=== PATIENT | female | born 1985 | race African-American/Black ===

== ENCOUNTER 2018-08-19 08:56 | Emergency (ER) | payer MEDICAID ==
[~2018-08-19] VITALS: Ht 172.7 cm; Wt 124.7 kg
[2018-08-19 09:02] VITALS: Ht 172.7 cm; Wt 124.7 kg
[2018-08-19 09:48] VITALS: BP 133/79
== END 2018-08-19 09:45 | disposition home or self-care (01) ==
LOC: ED 08:56
DX: L25.9 Unspecified contact dermatitis, unspecified cause (principal); E66.01 Morbid (severe) obesity due to excess calories; Z68.41 Body mass index [BMI] 40.0-44.9, adult

== ENCOUNTER 2019-01-16 08:55 | Emergency (ER) | payer MEDICAID ==
[~2019-01-16] VITALS: Ht 170.2 cm; Wt 116.1 kg
[2019-01-16 08:59] VITALS: Ht 170.2 cm; Wt 116.1 kg
[2019-01-16 09:23] LABS: microscopic required? NO
[2019-01-16 09:39] LABS: UA SPECIFIC GRAVITY 1.015 (1.005-1.035); urine erythrocyte NEGATIVE (NEGATIVE)
[2019-01-16 11:13] VITALS: BP 129/87
== END 2019-01-16 11:13 | disposition home or self-care (01) ==
LOC: ED 08:55
PROVIDERS: Emergency Medicine
DX: N76.0 Acute vaginitis (principal); Z98.890 Other specified postprocedural states
CPT/HCPCS: 87491; 87591